=== PATIENT | female | born 1945 | race Asian ===

== ENCOUNTER → 2017-10-25 | Outpatient (CLI) | payer MEDICARE, MEDICAID ==
[~2017-10-25] MED LIST: ASPI-621 PO; ATOR10TA9 PO; CELE200C PO; DOCU-131 PO; LOSA100T7 PO; MELO15TA24 PO; ONDA4TAB10 PO; OXYC5CAP2 PO; TRAM50TA2 PO
[2017-10-25 09:59] LABS: BASOPHILS # (AUTO) 0.05 x10^3/uL (0-0.1); BASOPHILS % (AUTO) 1 % (0-1); EOSINOPHILS # (AUTO) 0.12 x10^3/uL (0-0.4); EOSINOPHILS % (AUTO) 2 % (1-7); LYMPHOCYTES # (AUTO) 1.81 x10^3/uL (1-3.4); LYMPHOCYTES % (AUTO) 33 % (22-44); MD NO; MEAN CORPUSCULAR HEMOGLOBIN 29.5 pg (27.0-34.8); MEAN CORPUSCULAR HGB CONC 33.4 g/dL (32.4-35.8); MEAN CORPUSCULAR VOLUME 88.4 fL (80-100); MEAN PLATELET VOLUME 7.6 fL (7.4-10.4); MONOCYTES # (AUTO) 0.52 x10^3/uL (0.2-0.8); MONOCYTES % (AUTO) 9 % (2-9); NEUTROPHILS # (AUTO) 3.04 x10^3/uL (1.8-6.8); NEUTROPHILS % (AUTO) 55 % (42-75); PLATELET COUNT 296 x10^3/uL (130-400); RED BLOOD COUNT 4.64 x10^6/uL (3.82-5.3); RED CELL DISTRIBUTION WIDTH 14.8 % (9.6-15.2)
[2017-10-25 10:01] LABS: CULTURE INDICATED? NO; MICROSCOPIC NOT IND
[2017-10-25 10:09] LABS: ALANINE AMINOTRANSFERASE 35 U/L (12-78); ANION GAP 5 mmol/L (5-15); CALCIUM 9.5 mg/dL (8.5-10.1); CHLORIDE 105 mmol/L (98-107); CREATININE 0.96 mg/dL (0.55-1.02)
[2017-10-25 10:11] LABS: ALKALINE PHOSPHATASE 78 U/L (45-117); BILIRUBIN,TOTAL 0.6 mg/dL (0.2-1.0); TOTAL PROTEIN 8.7 g/dL (6.4-8.2)
[2017-10-25 10:15] LABS: HEMOGLOBIN A1C 5.9 % (4.2-6.3)
[2017-10-25 10:22] LABS: INTERNATIONAL NORMALIZED RATIO 0.94 (0.93-1.1); PROTHROMBIN TIME 9.8 Seconds (9.6-11.5)
== END | disposition home or self-care (01) ==
LOC: MERGE 08:30 → STAR 08:39
PROVIDERS: ATTEND Orthopaedic Surgery
DX: Z01.818 Encounter for other preprocedural examination (principal); M17.12 Unilateral primary osteoarthritis, left knee
CPT/HCPCS: 36415; 80053; 81003; 83036; 85025; 85610; 85730; 87081; 87806; 93005; G0475

== ENCOUNTER 2017-10-30 08:15 | Observation (INO) | payer MEDICARE, MEDICAID ==
[~2017-10-30] VITALS: Ht 160 cm; Wt 72.4 kg
[~2017-10-30 08:15] MED LIST changes: -ASPI-621 PO; -CELE200C PO; -DOCU-131 PO; +EPINEPHRINE 1 MG/ML, 1ML ONE; +KETOROLAC 60 MG/2 ML ONE; -ONDA4TAB10 PO; -OXYC5CAP2 PO; +ROPIvacaine/PF 0.2%, 20 ML ONE; -TRAM50TA2 PO; +TRANEXAMIC ACID 100 MG/ML, 10ML ONE; +VANCOMYCIN 1,000 MG ONE
[2017-10-30] MEDS ORDERED: LACTATED RINGERS 1,000 ML IV SCH (08:50)
[2017-10-30] MEDS ORDERED: ACETAMINOPHEN 500 MG TABLET PO ONE (09:00)
[2017-10-30] MEDS ORDERED: ONDANSETRON ODT 8 MG PO ONE (09:00)
[2017-10-30] MEDS ORDERED: GABAPENTIN 300 MG CAPSULE PO ONE (09:00)
[2017-10-30] MEDS ORDERED: SUCCINYLCHOLINE 20 MG/ML, 10ML ONE (09:12)
[2017-10-30] MEDS ORDERED: FENTANYL PF 100 MCG/2ML ONE (09:12)
[2017-10-30] MEDS ORDERED: DEXAMETHASONE 4 MG/ML, 1ML ONE (09:12)
[2017-10-30] MEDS ORDERED: PROPOFOL 10 MG/ML, 20ML ONE (09:12)
[2017-10-30] MEDS ORDERED: MIDAZOLAM 1 MG/ML, 2ML ONE (09:12)
[2017-10-30] MEDS ORDERED: CEFAZOLIN 1,000 MG ONE ×2 (09:12)
[2017-10-30] MEDS ORDERED: BUPIVACAINE/PF 0.5% ONE ×2 (09:17)
[2017-10-30] MEDS ORDERED: TRANEXAMIC ACID 100 MG/ML, 10ML ONE (09:59)
[2017-10-30] MEDS ORDERED: PROMETHAZINE 25 MG/ML, 1ML IV PRN (10:00)
[2017-10-30] MEDS ORDERED: METOPROLOL 1 MG/ML, 5ML IV PRN (10:00)
[2017-10-30] MEDS ORDERED: MORPHINE SULFATE 4 MG/ML, 1ML IVPush PRN (10:00)
[2017-10-30] MEDS ORDERED: MIDAZOLAM 1 MG/ML, 2ML IV PRN (10:00)
[2017-10-30] MEDS ORDERED: LABETALOL 5MG/ML, 20ML IV PRN (10:00)
[2017-10-30] MEDS ORDERED: ALBUTEROL SULFATE 2.5 MG/3 ML NPPB PRN (10:00)
[2017-10-30] MEDS ORDERED: LORazepam 2 MG/ML, 1ML IVPush PRN (10:00)
[2017-10-30] MEDS ORDERED: HYDROmorphone 1 MG/ML, 1ML IV PRN ×2 (10:00→13:00)
[2017-10-30] MEDS ORDERED: EPHEDRINE 50 MG/ML, 1ML IVPush PRN (10:00)
[2017-10-30] MEDS ORDERED: PROMETHAZINE 12.5 MG SUPP PR PRN ×2 (10:00→13:00)
[2017-10-30] MEDS ORDERED: MEPERIDINE/PF 25MG/0.5ML IVPush PRN (10:00)
[2017-10-30] MEDS ORDERED: hydrALAzine 20 MG/ML, 1ML IV PRN (10:00)
[2017-10-30] MEDS ORDERED: OXYcodone 5 MG/5 ML ORAL.SOL UDC PO PRN (10:00)
[2017-10-30] MEDS ORDERED: FENTANYL PF 100 MCG/2ML IV PRN (10:00)
[2017-10-30] MEDS ORDERED: ALUMINUM/MAG/SIMETHICONE 30 ML UDC PO PRN (13:00)
[2017-10-30] MEDS ORDERED: DIPHENHYDRAMINE 50 MG CAPSULE PO PRN (13:00)
[2017-10-30] MEDS ORDERED: SENNA/DOCUSATE TABLET PO PRN (13:00)
[2017-10-30] MEDS ORDERED: TRANEXAMIC ACID 1,000 MG in SODIUM CHLORIDE 0.9% 100 ML IVPB ONE (13:00)
[2017-10-30] MEDS ORDERED: ONDANSETRON 2MG/ML, 2ML IV PRN (13:00)
[2017-10-30] MEDS ORDERED: ONDANSETRON 4 MG TABLET PO PRN (13:00)
[2017-10-30] MEDS ORDERED: PROMETHAZINE 25 MG/ML, 1ML IM PRN (13:00)
[2017-10-30] MEDS ORDERED: MAGNESIUM HYDROXIDE 8%, 30ML UDC PO PRN (13:00)
[2017-10-30] MEDS ORDERED: OXYcodone 5 MG/5 ML ORAL.SOL UDC ONE (13:31)
[2017-10-30] MEDS ORDERED: MEPERIDINE/PF 50 MG/ML ONE (13:31)
[2017-10-30] MEDS: D5%-0.45NACL+KCL 20MEQ 1,000 ML IV SCH ×2 (15:20→22:51)
[2017-10-30] MEDS: ASPIRIN 81 MG TABLET EC PO SCH (19:00)
[2017-10-30 20:18] VITALS: BP 121/72
[2017-10-30] MEDS: ACETAMINOPHEN 325 MG TABLET PO PRN (20:34)
[2017-10-30] MEDS: DOCUSATE 100 MG CAPSULE PO SCH (20:34)
[2017-10-30] MEDS: CEFAZOLIN PMX 1GM/50ML 50 ML IVPB SCH (20:34)
[2017-10-30] MEDS ORDERED: ATORVASTATIN 10 MG TABLET PO SCH (21:00)
[2017-10-30 23:43] VITALS: BP 108/68
[2017-10-31 03:41] VITALS: BP 121/74
[2017-10-31] MEDS ORDERED: DEXAMETHASONE 4 MG/ML, 1ML ONE (03:57)
[2017-10-31] MEDS: ACETAMINOPHEN 325 MG TABLET PO PRN ×3 (04:04→14:21)
[2017-10-31] MEDS: ASPIRIN 81 MG TABLET EC PO SCH (04:06)
[2017-10-31] MEDS: CEFAZOLIN PMX 1GM/50ML 50 ML IVPB SCH (04:07)
[2017-10-31] MEDS: D5%-0.45NACL+KCL 20MEQ 1,000 ML IV SCH (04:30)
[2017-10-31] MEDS ORDERED: DEXAMETHASONE 4 MG/ML, 1ML IVPush SCH (06:00)
[2017-10-31 07:53] VITALS: BP 117/72
[2017-10-31] MEDS: DOCUSATE 100 MG CAPSULE PO SCH (08:38)
[2017-10-31] MEDS: OXYcodone IR 5MG TABLET PO PRN ×2 (08:45→14:21)
[2017-10-31] MEDS ORDERED: TRAM50TA2 PO (08:49)
[2017-10-31] MEDS ORDERED: DOCU-131 PO (08:49)
[2017-10-31] MEDS ORDERED: ONDA4TAB10 PO (08:49)
[2017-10-31] MEDS ORDERED: CELE200C PO (08:49)
[2017-10-31] MEDS ORDERED: OXYC5CAP2 PO (08:49)
[2017-10-31] MEDS ORDERED: ASPI-621 PO (08:49)
[2017-10-31] MEDS ORDERED: LOSARTAN 50MG TABLET PO SCH (09:00)
[2017-10-31] MEDS ORDERED: TAMSULOSIN 0.4 MG CAP.ER.24H PO SCH (09:00)
[2017-10-31] MEDS ORDERED: KETOROLAC 30 MG/1 ML IV SCH (13:00)
[2017-10-31 13:50] VITALS: BP 112/69
== END 2017-10-31 14:45 | disposition home or self-care (01) ==
LOC: OUT 08:15 → 4NOR 14:24 → OUT 22:12 → 4NOR 22:13 → DCLOUNGE 10-31 14:31
PROVIDERS: ADMIT Orthopaedic Surgery; ATTEND Orthopaedic Surgery
DX: M17.12 Unilateral primary osteoarthritis, left knee (principal); Z79.899 Other long term (current) drug therapy
CPT/HCPCS: 27447; 36415; 73560; 85014; 85018; 96365; 96366; 96375; 97150; 97162; 97165; 97530; C1713; C1776; G0378; G8978; G8979; G8980; J0171; J0330; J0690; J1100; J1885; J2175; J2250; J2704; J2795; J3010; J3480; J3490; J7120; Q0162; J3370